=== PATIENT | female | born 1955 | race Caucasian/White ===

== ENCOUNTER → 2016-11-08 | Outpatient (CLI) | payer OTHER | END | disposition home or self-care (01) | LOC: WOUND 08:05 | PROVIDERS: ATTEND Physician Assistant | DX: T81.31XA Disruption of external operation (surgical) wound, not elsewhere classified, initial encounter (principal); I89.0 Lymphedema, not elsewhere classified; J45.909 Unspecified asthma, uncomplicated; E66.01 Morbid (severe) obesity due to excess calories; Z68.41 Body mass index [BMI] 40.0-44.9, adult; Z96.651 Presence of right artificial knee joint; Y83.8 Other surgical procedures as the cause of abnormal reaction of the patient, or of later complication, without mention of misadventure at the time of the procedure; Y92.89 Other specified places as the place of occurrence of the external cause | CPT/HCPCS: 11042; 99214 ==

== ENCOUNTER → 2016-11-15 | Outpatient (CLI) | payer OTHER | END | disposition home or self-care (01) | LOC: WOUND 07:49 | PROVIDERS: ATTEND Physician Assistant | DX: T81.31XD Disruption of external operation (surgical) wound, not elsewhere classified, subsequent encounter (principal); E66.01 Morbid (severe) obesity due to excess calories; I89.0 Lymphedema, not elsewhere classified; Z68.41 Body mass index [BMI] 40.0-44.9, adult; Z96.651 Presence of right artificial knee joint; J45.909 Unspecified asthma, uncomplicated; Y83.8 Other surgical procedures as the cause of abnormal reaction of the patient, or of later complication, without mention of misadventure at the time of the procedure | CPT/HCPCS: 99215 ==

== ENCOUNTER → 2016-11-22 | Outpatient (CLI) | payer OTHER | END | disposition home or self-care (01) | LOC: WOUND 07:45 | PROVIDERS: ATTEND Physician Assistant | DX: T81.31XD Disruption of external operation (surgical) wound, not elsewhere classified, subsequent encounter (principal); I89.0 Lymphedema, not elsewhere classified; E66.01 Morbid (severe) obesity due to excess calories; J45.909 Unspecified asthma, uncomplicated; Z68.41 Body mass index [BMI] 40.0-44.9, adult; Y83.8 Other surgical procedures as the cause of abnormal reaction of the patient, or of later complication, without mention of misadventure at the time of the procedure | CPT/HCPCS: 97597 ==

== ENCOUNTER → 2016-11-29 | Outpatient (CLI) | payer OTHER | END | disposition home or self-care (01) | LOC: WOUND 07:37 | PROVIDERS: ATTEND Specialist | DX: T81.31XD Disruption of external operation (surgical) wound, not elsewhere classified, subsequent encounter (principal); I89.0 Lymphedema, not elsewhere classified; J45.909 Unspecified asthma, uncomplicated; E66.01 Morbid (severe) obesity due to excess calories; Z68.41 Body mass index [BMI] 40.0-44.9, adult; Z96.651 Presence of right artificial knee joint; Y83.8 Other surgical procedures as the cause of abnormal reaction of the patient, or of later complication, without mention of misadventure at the time of the procedure | CPT/HCPCS: 99213 ==

== ENCOUNTER → 2016-12-06 | Outpatient (CLI) | payer OTHER | END | disposition home or self-care (01) | LOC: WOUND 07:56 | PROVIDERS: ATTEND Physician Assistant | DX: T81.31XD Disruption of external operation (surgical) wound, not elsewhere classified, subsequent encounter (principal); I89.0 Lymphedema, not elsewhere classified; E66.01 Morbid (severe) obesity due to excess calories; Z68.41 Body mass index [BMI] 40.0-44.9, adult; Z96.651 Presence of right artificial knee joint; Y83.8 Other surgical procedures as the cause of abnormal reaction of the patient, or of later complication, without mention of misadventure at the time of the procedure | CPT/HCPCS: 99213 ==